=== PATIENT | female | born 1970 | race African-American/Black ===

== ENCOUNTER 2022-04-20 07:50 | Outpatient (CLI) | payer BC | END 2022-04-20 07:51 | disposition home or self-care (01) | LOC: CSHMAMMO 07:50 | PROVIDERS: ATTEND Family Medicine | DX: Z12.31 Encounter for screening mammogram for malignant neoplasm of breast (principal) | CPT/HCPCS: 77063; 77067 ==

== ENCOUNTER 2024-06-19 07:59 | Outpatient (CLI) | payer BC | END 2024-06-19 08:00 | disposition home or self-care (01) | LOC: CSHMAMMO 07:59 | PROVIDERS: ATTEND Family Medicine | DX: Z12.31 Encounter for screening mammogram for malignant neoplasm of breast (principal) | CPT/HCPCS: 77067 ==

== ENCOUNTER 2025-06-22 09:02 | Outpatient (CLI) | payer BC | END 2025-06-22 09:03 | disposition home or self-care (01) | LOC: CSHMAMMO 09:02 | PROVIDERS: ATTEND Family Medicine | DX: Z12.31 Encounter for screening mammogram for malignant neoplasm of breast (principal) | CPT/HCPCS: 77063; 77067 ==